=== PATIENT | male | born 1990 | race Caucasian/White ===

== ENCOUNTER 2021-10-14 02:17 | Inpatient (IN) | payer OTHER, SELFPAY ==
--- NOTE | 2021-10-14 | ECG_ITS ---
Test Reason : check qtc Blood Pressure : / mmHG Vent. Rate : 086 BPM Atrial Rate : 086 BPM P-R Int : 128 ms QRS Dur : 096 ms QT Int : 374 ms P-R-T Axes : 068 053 051 degrees QTc Int : 447 ms Normal sinus rhythm Normal ECG No previous ECGs available Referred By: Linda Lewis Electronically Signed By:Babar Bravo
[2021-10-14 02:45] VITALS: BP 133/79; PULSE 93; RESP 16; TEMP 36.4; O2SAT 99
[2021-10-14 03:00] VITALS: BMI 22.9
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
[2021-10-14 08:32] LABS: Cholesterol 134 mg/dL; Estimated Average Glucose 94 mg/dL; HDL Cholesterol 44 mg/dL; Hemoglobin A1c % 4.9 %; LDL Cholesterol Calculated 75 mg/dl; Triglycerides 77 mg/dL
[2021-10-14] MEDS: Nicotine 21 MG PATCH.TD24 TRANSDERMA (08:54)
--- NOTE | 2021-10-14 12:00 | PM.IMCN ---
History of Present Illness Data of Consult Service Date: 10/14/21 Primary Care Provider: Unknown Physician HPI Reason for consult: Routine Medical Consult This is a 31 yo M who reports no medical problems. He is admitted to the inpatient psych unit. Medical consult requested as part of protocol for transfer from outside facility. Patient is seen and examined in the exam room on M5. He denies CP, Sob, Cough, abd pain, n/v/d. PMH Denies PSH Denies FH Reports no significant PMH SH Reports smoking 2-3 PPD, denies EtOh; reports Marijuana Review of Systems Review of Systems: negative except hpi [facility] Medical History (Updated 10/14/21 @ 14:18 by Marcelo Flower MD) Hypertension Cognitive capacity: patient did not report to me a history of HTN Social History Household Members: Family Household Members Other:: mother and father Housing: House Do you presently have visiting nurse or other home services: No Unable to assess alcohol history related to: Unknown Patient Tobacco Use Status: Current everyday Tobacco user Tobacco use type: Cigarette Cigarette Packs Per Day: 2 Cigarettes Per Day: 40.0 Years Smoked: 15 Smoked in Last 30 Days: Yes e-Cigarette/Vaping Use: Never Used Patient Interested in Nicotine Replacement: Yes Substance Use Type: Marijuana Currently Displaying Signs/Symptoms of Drug Intoxication Withdrawal: No Advance Directives: No Advance Directives Information Provided: Yes Advance Directives on File: No Do you have thoughts of harming others: None Do you have a plan to hurt others: No Plan Recently lost weight without trying: Unsure Eating poorly because of decreased appetite: No Nutrition Risks: No Nutritional Risk service: No Sexual orientation: Straight/Heterosexual Meds Allergies Allergy/AdvReac Type Severity Reaction Status Date / Time No Known Allergies Allergy Verified 10/14/21 02:59 Active Medications: Current Medications Acetaminophen (Acetaminophen 325 Mg Tablet) 650 mg PO Q6H PRN PRN Reason: Headache/Pain Mild Scale (1-3) Al Hydroxide/Mg Hydroxide (Magnesium Hydrox/Alum Hydrox 30 Ml Oral.Susp) 30 ml PO Q6H PRN PRN Reason: Heartburn/Nausea Diphenhydramine HCl (Diphenhydramine Hcl 25 Mg Tablet) 50 mg PO Q4H PRN PRN Reason: agitation Haloperidol (Haloperidol 5 Mg Tablet) 5 mg PO Q4H PRN PRN Reason: agitation Hydroxyzine HCl (Hydroxyzine Hcl 25 Mg Tablet) 25 mg PO BEDTIME PRN PRN Reason: Anxiety Lorazepam (Lorazepam 1 Mg Tablet) 2 mg PO Q4H PRN PRN Reason: agitation Magnesium Hydroxide (Milk Of Magnesia 30 Ml Oral.Susp) 30 ml PO DAILY PRN PRN Reason: Constipation Nicotine (Nicotine 21 Mg Patch.Td24) 21 mg TRANSDERMA DAILY [facility] Last Admin: 10/14/21 08:54 Dose: 21 mg Documented by: Trazodone HCl (Trazodone Hcl 50 Mg Tablet) 50 mg PO BEDTIME PRN PRN Reason: Insomnia Home Medications Medication Instructions Recorded Confirmed Last Taken Type aripiprazole 5 mg tablet 1 tab PO DAILY 10/14/21 10/14/21 Unknown History divalproex 250 mg tablet,delayed 250 mg PO BEDTIME 10/14/21 10/14/21 10/14/21 00:15 History release 250 mg divalproex 500 mg tablet,delayed 1 tab PO BID 10/14/21 10/14/21 10/14/21 00:15 History release 500 mg lithium carbonate 300 mg tablet 1 tab PO BID 10/14/21 10/14/21 10/14/21 00:15 History 300 mg risperidone 2 mg tablet 4 mg PO BEDTIME 10/14/21 10/14/21 10/14/21 00:15 History 4 mg ziprasidone HCl 20 mg capsule 20 mg PO BEDTIME 10/14/21 10/14/21 10/14/21 00:15 History 20 mg Physical Exam Vital Signs and Narrative: Vital Signs: Last Vital Signs Temp 97.5 F 10/14/21 02:45 Pulse 93 10/14/21 02:45 Resp 16 10/14/21 02:45 BP 133/79 10/14/21 02:45 Pulse Ox 99 10/14/21 02:45 BMI result Body Mass Index 22.9 Const: Other: Constitutional - Awake and Alert, No apparent distress Eyes - PERRLA, EOMI Cardiovascular - S1S2, RRR, No edema Respiratory - Normal lung expansion, Normal respiratory effort, No respiratory distress, CTA bilaterally Gastrointestinal - NT / ND; +BS; No rebound or guarding - No CVA tenderness Extremities - no calf tenderness bilaterally, no swelling Musculoskeletal - Normal inspection, normal ROM Skin - Warm/Dry Neurological - Alert & oriented x3, No focal deficit; CN 2-12 in tact bilaterally Psychological - Appropriate affect Results Labs Labs: Laboratory Results - last 24 hr 10/14/21 10/14/21 07:48 07:48 Estimat Average Glucose 94 Hemoglobin A1c % 4.9 Triglycerides 77 Cholesterol 134 LDL Cholesterol, Calc 75 HDL Cholesterol 44 Assessment and Plan (1) No pertinent past medical history: Status: Acute This is a 31 yo M admitted to . Medical consult requested as part of routine medical H&P. Patient denies any chronic medical problems nor does he seem to appear have any active medical issues. Please reconsult PRN.
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
[2021-10-14 18:00] VITALS: BP 143/96; PULSE 108; TEMP 37; O2SAT 97
[2021-10-14] MEDS: Lithium Carbonate 300 MG CAPSULE PO ×2 (19:14→21:15)
[2021-10-14] MEDS: ARIPiprazole 5 MG TABLET PO (19:24)
[2021-10-14] MEDS: Divalproex Sodium 500 MG TABLET.DR PO ×2 (19:25→21:15)
[2021-10-14] MEDS: Divalproex Sodium 250 MG TABLET.DR PO (21:16)
[2021-10-14] MEDS: risperiDONE 2 MG TABLET 4 MG PO (21:17)
[2021-10-14] MEDS: Ziprasidone 20 MG CAPSULE PO (21:17)
[2021-10-15] MEDS: traZODone HCL 50 MG TABLET PO ×2 (00:15→22:27)
[2021-10-15] MEDS: hydrOXYzine HCL 25 MG TABLET PO ×2 (00:16→13:22)
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
[2021-10-15 06:00] VITALS: BP 142/86; PULSE 112; RESP 16; TEMP 36.2; O2SAT 99
[2021-10-15] MEDS: Nicotine 21 MG PATCH.TD24 TRANSDERMA (08:10)
[2021-10-15] MEDS: Lithium Carbonate 300 MG CAPSULE PO ×2 (08:10→21:12)
[2021-10-15] MEDS: ARIPiprazole 5 MG TABLET PO (08:11)
[2021-10-15] MEDS: Divalproex Sodium 500 MG TABLET.DR PO ×2 (08:11→21:12)
--- NOTE | 2021-10-15 11:07 | P.PNPSI_ITS ---
Subjective Subjective Date of Service: 10/15/21 Reason For Visit: Bipolar Disorder Subjective Notes: 3 Day Interim History: pt in 505 due to roommate issues. pt irritable and anxious. denies he needs psychiatric care. pressured, internally preoccupied Medication Compliance: Yes Side effects from medications: No Attending Groups: No Review of Systems Acute medical concerns: No Medical Review of Systems: unchanged Review of Systems Review of Systems negative except hpi Mental Status Exam Mental Status Exam Narrative: Pt is alert and oriented; pt presenting mildly irritable and anxious today. Feels he does not need to be in the hospital. eye contact appropriate; Speech is normal rate, volume and prosody and not pressured; no psychomotor retardation present; thought process is organized and goal directed; Thought content is on paranoid delusions and on going home; otherwise pertinent to relevant topics; denies any SI/HI. Denies AVH however makes statements that allude to it; Patients insight and judgment are impaired however he does think he needs and does take meds (levels attest). Patient Appearance: Unkempt Patient Orientation: Person and Situation Level of Consciousness: Appropriate Patient Behavior: Appropriate Mood Description: Anxious Affect Description: Withdrawn Patient Cognition Impaired: Yes Ability to Follow Directions: Good Judgement: Fair Diagnostics Vital Signs (24Hr): Vital Signs - 24 hr 10/14/21 18:00 10/15/21 06:00 Temperature 98.6 F 97.1 F Pulse Rate 108 H 112 H Respiratory Rate 16 Blood Pressure 143/96 H 142/86 H Pulse Oximetry 97 99 BMI result Body Mass Index 22.9 Labs Labs: Laboratory Results - last 48 hr 10/14/21 10/14/21 07:48 07:48 Estimat Average Glucose 94 Hemoglobin A1c % 4.9 Triglycerides 77 Cholesterol 134 LDL Cholesterol, Calc 75 HDL Cholesterol 44 Medications Medications Current Medications Acetaminophen (Acetaminophen 325 Mg Tablet) 650 mg PO Q6H PRN PRN Reason: Headache/Pain Mild Scale (1-3) Al Hydroxide/Mg Hydroxide (Magnesium Hydrox/Alum Hydrox 30 Ml Oral.Susp) 30 ml PO Q6H PRN PRN Reason: Heartburn/Nausea Aripiprazole (Aripiprazole 5 Mg Tablet) 5 mg PO DAILY [facility] Last Admin: 10/15/21 08:11 Dose: 5 mg Documented by: Diphenhydramine HCl (Diphenhydramine Hcl 25 Mg Tablet) 50 mg PO Q4H PRN PRN Reason: agitation Divalproex Sodium (Divalproex Sodium 250 Mg Tablet.) 250 mg PO BEDTIME [facility] Last Admin: 10/14/21 21:16 Dose: 250 mg Documented by: Divalproex Sodium (Divalproex Sodium 500 Mg Tablet.) 500 mg PO BID [facility] Last Admin: 10/15/21 08:11 Dose: 500 mg Documented by: Haloperidol (Haloperidol 5 Mg Tablet) 5 mg PO Q4H PRN PRN Reason: agitation Hydroxyzine HCl (Hydroxyzine Hcl 25 Mg Tablet) 25 mg PO BEDTIME PRN PRN Reason: Anxiety Last Admin: 10/15/21 00:16 Dose: 25 mg Documented by: [place] Carbonate ([place] Carbonate 300 Mg Capsule) 300 mg PO BID [facility] Last Admin: 10/15/21 08:10 Dose: 300 mg Documented by: Lorazepam (Lorazepam 1 Mg Tablet) 2 mg PO Q4H PRN PRN Reason: agitation Magnesium Hydroxide (Milk Of Magnesia 30 Ml Oral.Susp) 30 ml PO DAILY PRN PRN Reason: Constipation Nicotine (Nicotine 21 Mg Patch.Td24) 21 mg TRANSDERMA DAILY [facility] Last Admin: 10/15/21 08:10 Dose: 21 mg Documented by: Nicotine Polacrilex (Nicotine Polacrilex Lozenge 4 Mg Lozenge) 4 mg BUCCAL Q2H PRN PRN Reason: Nicotine Cravings Risperidone (Risperidone 2 Mg Tablet) 4 mg PO BEDTIME [facility] Last Admin: 10/14/21 21:17 Dose: 4 mg Documented by: Trazodone HCl (Trazodone Hcl 50 Mg Tablet) 50 mg PO BEDTIME PRN PRN Reason: Insomnia Last Admin: 10/15/21 00:15 Dose: 50 mg Documented by: Ziprasidone (Ziprasidone 20 Mg Capsule) 20 mg PO BEDTIME [facility] Last Admin: 10/14/21 21:17 Dose: 20 mg Documented by: Allergies Allergies Allergy/AdvReac Type Severity Reaction Status Date / Time No Known Allergies Allergy Verified 10/14/21 02:59 Assessment & Plan Assessment & Plan (1) Schizoaffective disorder, bipolar type: Status: Acute Code(s): F25.0 - Schizoaffective disorder, bipolar type Assessment and Plan: IMPRESSION: Patient is a 31-year-old male with history of schizoaffective disorder who presents from [facility] respite for paranoid thinking and reportedly verbal aggression towards staff. Patient reports lithium and Risperdal are helpful Patient expresses some paranoid delusional thinkin. he denies any SI or HI, He is s lightly irritable and anxious today, without manic symptoms, He is taking his medications; -will continue patient's home medications for now. Levels were recently drawn at [facility] the day before this admission (see below). It is un clear why he is on 3 antipsychotics, two of which are at starting doses; will reach out to outpatient provider for collateral to see if current medication regimen could perhaps be modified and at least one antipsychotic eliminated; also patient's Depakote and lithium levels are either low-normal or subtherapeutic with room for increased doses PLAN: Patient on 3 day notice Q 15 minutes checks Will continue home medications for now however it is unclear why patient is on 3 antipsychotics, two of which are at starting doses; will reach out to outpatient provider for collateral to see if current medication regimen could perhaps be modified and at least one antipsychotic eliminated; also patient's Depakote and lithium levels are either low-normal or subtherapeutic with room for increased dose (patient was recently at a respite and says he takes his meds daily) Obtain collateral information to see how close patient is to his baseline; patient lives with his mother and father and will look to them to help determine his readiness to return home. Abilify 5 mg daily Risperdal 4 mg at bedtime Ziprasidone 20 mg at bedtime Depakote ER 250 mg in the morning Depakote ER 750 mg q.h.s. [place] 300 mg b.i.d. Lab values from [facility] 10/13/21: [place] 0.32 Valproic acid 62.3 Liver enzymes: Within normal limits BUN/CR: 6/0.70 (WNL) Electrolytes: Within normal limits CBC: Within normal limits I spent minutes with the patient and/or on the patient floor today, greater than?50% of which was spent counseling/coordinating care. Patient educated on: medication risk/benefits Informed Consent: further education needed Reason for contiued inpatient stay Substantial Risk for: inability to function and rapid decompensation
[2021-10-15 18:30] VITALS: BP 149/86; PULSE 120; RESP 20; TEMP 36.6; O2SAT 98
[2021-10-15] MEDS: Divalproex Sodium 250 MG TABLET.DR PO (21:12)
[2021-10-15] MEDS: Ziprasidone 20 MG CAPSULE PO (21:12)
[2021-10-15] MEDS: risperiDONE 2 MG TABLET 4 MG PO (21:12)
[2021-10-16 01:16] VITALS: BP 151/106; PULSE 116; RESP 16; TEMP 36.6; O2SAT 97
[2021-10-16] MEDS: HaloperidoL 5 MG TABLET PO (01:18)
[2021-10-16] MEDS: LORazepam 1 MG TABLET 2 MG PO (01:18)
[2021-10-16] MEDS: diphenhydrAMINE HCL 25 MG TABLET 50 MG PO (01:19)
--- NOTE | 2021-10-16 04:21 | PC.NURSE ---
At approx. 1:15am Patient comes out to Nursing Station to report heightened anxiety. Patient reports several fears related to being on the unit and states I'm going to need to defend the people I care about and I care about you. Patient's vital signs are assessed and BP is found to be 151/106 with HR 116. Patient reports he is fearful of sleeping in his room tonight and feels he will be stuck here for a very long time. Patient is reassured and Ativan, Haldol, Benedryl are administered with positive effect. Patient continues to rest comfortably in bed.
[2021-10-16 06:42] VITALS: BP 124/74; PULSE 91; RESP 16; TEMP 36.6; O2SAT 97
[2021-10-16] MEDS: ARIPiprazole 5 MG TABLET PO (08:14)
[2021-10-16] MEDS: Lithium Carbonate 300 MG CAPSULE PO ×2 (08:14→21:34)
[2021-10-16] MEDS: Nicotine 21 MG PATCH.TD24 TRANSDERMA (08:14)
[2021-10-16] MEDS: Divalproex Sodium 500 MG TABLET.DR PO ×2 (08:14→21:34)
--- NOTE | 2021-10-16 10:53 | HO.PSYCHPN ---
Subjective Subjective Date of Service: 10/16/21 Reason For Visit: Bipolar Disorder Interim History: no significant change, continues to be paranoid. He is med compliant and cooperative Medication Compliance: Yes Side effects from medications: No Attending Groups: No Review of Systems Acute medical concerns: No Medical Review of Systems: unchanged Review of Systems Review of Systems negative except hpi Mental Status Exam Mental Status Exam Narrative: Pt is alert and oriented; pt anxious today. Feels he does not need to be in the hospital. eye contact appropriate; Speech is normal rate, volume and prosody and not pressured; no psychomotor retardation present; thought process is organized and goal directed; Thought content is on paranoid delusions and on going home; denies any SI/HI. Denies AVH Patients insight and judgment are impaired however he does think he needs treatment and he does take meds Patient Appearance: Unkempt Patient Orientation: Person and Situation Level of Consciousness: Appropriate Patient Behavior: Appropriate Mood Description: Anxious Affect Description: Withdrawn Patient Cognition Impaired: Yes Ability to Follow Directions: Good Diagnostics Vital Signs (24Hr): Vital Signs - 24 hr 10/15/21 18:30 10/16/21 01:16 10/16/21 06:42 Temperature 97.8 F 97.8 F 97.8 F Pulse Rate 120 H 116 H 91 Respiratory Rate 20 16 16 Blood Pressure 149/86 H 151/106 H 124/74 Pulse Oximetry 98 97 97 BMI result Body Mass Index 22.9 Medications Medications Current Medications Acetaminophen (Acetaminophen 325 Mg Tablet) 650 mg PO Q6H PRN PRN Reason: Headache/Pain Mild Scale (1-3) Al Hydroxide/Mg Hydroxide (Magnesium Hydrox/Alum Hydrox 30 Ml Oral.Susp) 30 ml PO Q6H PRN PRN Reason: Heartburn/Nausea Aripiprazole (Aripiprazole 5 Mg Tablet) 5 mg PO DAILY [facility] Last Admin: 10/16/21 08:14 Dose: 5 mg Documented by: Diphenhydramine HCl (Diphenhydramine Hcl 25 Mg Tablet) 50 mg PO Q4H PRN PRN Reason: agitation Last Admin: 10/16/21 01:19 Dose: 50 mg Documented by: Divalproex Sodium (Divalproex Sodium 250 Mg Tablet.) 250 mg PO BEDTIME [facility] Last Admin: 10/15/21 21:12 Dose: 250 mg Documented by: Divalproex Sodium (Divalproex Sodium 500 Mg Tablet.) 500 mg PO BID [facility] Last Admin: 10/16/21 08:14 Dose: 500 mg Documented by: Haloperidol (Haloperidol 5 Mg Tablet) 5 mg PO Q4H PRN PRN Reason: agitation Last Admin: 10/16/21 01:18 Dose: 5 mg Documented by: Hydroxyzine HCl (Hydroxyzine Hcl 25 Mg Tablet) 25 mg PO BEDTIME PRN PRN Reason: Anxiety Last Admin: 10/15/21 13:22 Dose: 25 mg Documented by: [place] Carbonate ([place] Carbonate 300 Mg Capsule) 300 mg PO BID [facility] Last Admin: 10/16/21 08:14 Dose: 300 mg Documented by: Lorazepam (Lorazepam 1 Mg Tablet) 2 mg PO Q4H PRN PRN Reason: agitation Last Admin: 10/16/21 01:18 Dose: 2 mg Documented by: Magnesium Hydroxide (Milk Of Magnesia 30 Ml Oral.Susp) 30 ml PO DAILY PRN PRN Reason: Constipation Nicotine (Nicotine 21 Mg Patch.Td24) 21 mg TRANSDERMA DAILY [facility] Last Admin: 10/16/21 08:14 Dose: 21 mg Documented by: Nicotine Polacrilex (Nicotine Polacrilex Lozenge 4 Mg Lozenge) 4 mg BUCCAL Q2H PRN PRN Reason: Nicotine Cravings Risperidone (Risperidone 2 Mg Tablet) 4 mg PO BEDTIME [facility] Last Admin: 10/15/21 21:12 Dose: 4 mg Documented by: Trazodone HCl (Trazodone Hcl 50 Mg Tablet) 50 mg PO BEDTIME PRN PRN Reason: Insomnia Last Admin: 10/15/21 22:27 Dose: 50 mg Documented by: Ziprasidone (Ziprasidone 20 Mg Capsule) 20 mg PO BEDTIME [facility] Last Admin: 10/15/21 21:12 Dose: 20 mg Documented by: Allergies Allergies Allergy/AdvReac Type Severity Reaction Status Date / Time No Known Allergies Allergy Verified 10/14/21 02:59 Assessment & Plan Assessment & Plan (1) Schizoaffective disorder, bipolar type: Status: Acute Code(s): F25.0 - Schizoaffective disorder, bipolar type Assessment and Plan: IMPRESSION: Patient is a 31-year-old male with history of schizoaffective disorder who presents from [facility] respite for paranoid thinking and reportedly verbal aggression towards staff. Patient reports lithium and Risperdal are helpful Patient expresses some paranoid delusional thinkin. he denies any SI or HI, He is s lightly irritable and anxious today, without manic symptoms, He is taking his medications; -will continue patient's home medications for now. Levels were recently drawn at [facility] the day before this admission (see below). It is unclear why he is on 3 antipsychotics, two of which are at starting doses; will reach out to outpatient provider for collateral to see if current medication regimen could perhaps be modified and at least one antipsychotic eliminated; also patient's Depakote and lithium levels are either low-normal or subtherapeutic with room for increased doses 10/16/21 continue with current plan: Patient on 3 day notice Q 15 minutes checks Will continue home medications for now however it is unclear why patient is on 3 antipsychotics, two of which are at starting doses; will reach out to outpatient provider for collateral to see if current medication regimen could perhaps be modified and at least one antipsychotic eliminated; also patient's Depakote and lithium levels are either low-normal or subtherapeutic with room for increased dose (patient was recently at a respite and says he takes his meds daily) Obtain collateral information to see how close patient is to his baseline; patient lives with his mother and father and will look to them to help determine his readiness to return home. Abilify 5 mg daily Risperdal 4 mg at bedtime Ziprasidone 20 mg at bedtime Depakote ER 250 mg in the morning Depakote ER 750 mg q.h.s. [place] 300 mg b.i.d. Lab values from [facility] 10/13/21: [place] 0.32 Valproic acid 62.3 Liver enzymes: Within normal limits BUN/CR: 6/0.70 (WNL) Electrolytes: Within normal limits CBC: Within normal limits I spent minutes with the patient and/or on the patient floor today, greater than?50% of which was spent counseling/coordinating care. Reason for contiued inpatient stay Substantial Risk for: harm to self, inability to function and rapid decompensation
[2021-10-16 21:30] VITALS: BP 138/71; PULSE 97; TEMP 36.9
[2021-10-16] MEDS: Divalproex Sodium 250 MG TABLET.DR PO (21:34)
[2021-10-16] MEDS: risperiDONE 2 MG TABLET 4 MG PO (21:34)
[2021-10-16] MEDS: Ziprasidone 20 MG CAPSULE PO (21:34)
[2021-10-16] MEDS: traZODone HCL 50 MG TABLET PO (22:43)
[2021-10-17] MEDS: diphenhydrAMINE HCL 25 MG TABLET 50 MG PO ×2 (01:32→20:16)
[2021-10-17] MEDS: LORazepam 1 MG TABLET 2 MG PO ×2 (01:32→20:14)
[2021-10-17] MEDS: HaloperidoL 5 MG TABLET PO ×2 (01:35→20:14)
[2021-10-17 03:01] LABS: COVID-19 Test Negative (Negative)
[2021-10-17 06:00] VITALS: BP 115/77; PULSE 106; RESP 16; TEMP 36.5; O2SAT 99
[2021-10-17] MEDS: Lithium Carbonate 300 MG CAPSULE PO ×2 (08:23→20:14)
[2021-10-17] MEDS: ARIPiprazole 5 MG TABLET PO (08:23)
[2021-10-17] MEDS: Divalproex Sodium 500 MG TABLET.DR PO ×2 (08:23→20:13)
[2021-10-17] MEDS: Nicotine 21 MG PATCH.TD24 TRANSDERMA (08:23)
--- NOTE | 2021-10-17 10:44 | P.PNPSI_ITS ---
Subjective Subjective Date of Service: 10/17/21 Reason For Visit: Bipolar Disorder Interim History: pt mood anxious; wants to be discharged. staff report he was up at 2 am Medication Compliance: Yes Side effects from medications: No Attending Groups: No Review of Systems Acute medical concerns: No Medical Review of Systems: unchanged Review of Systems Review of Systems no changes Mental Status Exam Mental Status Exam Narrative: Pt is alert and oriented; pt anxious today. Feels he does not need to be in the hospital. eye contact appropriate; Speech is normal rate, volume and prosody and not pressured; no psychomotor retardation present; thought process is organized and goal directed; Thought content is on paranoid delusions and on going home; denies any SI/HI. Denies AVH Patients insight and judgment are impaired however he does think he needs treatment and he does take meds Patient Appearance: Unkempt Patient Orientation: Person and Situation Level of Consciousness: Appropriate Patient Behavior: Appropriate Mood Description: Anxious Affect Description: Withdrawn Patient Cognition Impaired: Yes Ability to Follow Directions: Good Judgement: Poor Diagnostics Vital Signs (24Hr): Vital Signs - 24 hr 10/16/21 21:30 10/17/21 06:00 Temperature 98.5 F 97.7 F Pulse Rate 97 106 H Respiratory Rate 16 Blood Pressure 138/71 115/77 Pulse Oximetry 99 BMI result Body Mass Index 22.9 Labs Labs: Laboratory Results - last 48 hr 10/17/21 02:35 COVID-19 ([facility]) Negative COVID-19 Clin Com See Note Medications Medications Current Medications Acetaminophen (Acetaminophen 325 Mg Tablet) 650 mg PO Q6H PRN PRN Reason: Headache/Pain Mild Scale (1-3) Al Hydroxide/Mg Hydroxide (Magnesium Hydrox/Alum Hydrox 30 Ml Oral.Susp) 30 ml PO Q6H PRN PRN Reason: Heartburn/Nausea Aripiprazole (Aripiprazole 5 Mg Tablet) 5 mg PO DAILY [facility] Last Admin: 10/17/21 08:23 Dose: 5 mg Documented by: Diphenhydramine HCl (Diphenhydramine Hcl 25 Mg Tablet) 50 mg PO Q4H PRN PRN Reason: agitation Last Admin: 10/17/21 01:32 Dose: 50 mg Documented by: Divalproex Sodium (Divalproex Sodium 250 Mg Tablet.) 250 mg PO BEDTIME [facility] Last Admin: 01/01/22 21:34 Dose: 250 mg Documented by: Divalproex Sodium (Divalproex Sodium 500 Mg Tablet.Dr) 500 mg PO BID [facility] Last Admin: 10/17/21 08:23 Dose: 500 mg Documented by: Haloperidol (Haloperidol 5 Mg Tablet) 5 mg PO Q4H PRN PRN Reason: agitation Last Admin: 10/17/21 01:35 Dose: 5 mg Documented by: Hydroxyzine HCl (Hydroxyzine Hcl 25 Mg Tablet) 25 mg PO BEDTIME PRN PRN Reason: Anxiety Last Admin: 10/15/21 13:22 Dose: 25 mg Documented by: [place] Carbonate ([place] Carbonate 300 Mg Capsule) 300 mg PO BID [facility] Last Admin: 10/17/21 08:23 Dose: 300 mg Documented by: Lorazepam (Lorazepam 1 Mg Tablet) 2 mg PO Q4H PRN PRN Reason: agitation Last Admin: 10/17/21 01:32 Dose: 2 mg Documented by: Magnesium Hydroxide (Milk Of Magnesia 30 Ml Oral.Susp) 30 ml PO DAILY PRN PRN Reason: Constipation Nicotine (Nicotine 21 Mg Patch.Td24) 21 mg TRANSDERMA DAILY [facility] Last Admin: 10/17/21 08:23 Dose: 21 mg Documented by: Nicotine Polacrilex (Nicotine Polacrilex Lozenge 4 Mg Lozenge) 4 mg BUCCAL Q2H PRN PRN Reason: Nicotine Cravings Risperidone (Risperidone 2 Mg Tablet) 4 mg PO BEDTIME [facility] Last Admin: 10/16/21 21:34 Dose: 4 mg Documented by: Trazodone HCl (Trazodone Hcl 50 Mg Tablet) 50 mg PO BEDTIME PRN PRN Reason: Insomnia Last Admin: 10/16/21 22:43 Dose: 50 mg Documented by: Ziprasidone (Ziprasidone 20 Mg Capsule) 20 mg PO BEDTIME [facility] Last Admin: 10/16/21 21:34 Dose: 20 mg Documented by: Allergies Allergies Allergy/AdvReac Type Severity Reaction Status Date / Time No Known Allergies Allergy Verified 10/14/21 02:59 Assessment & Plan Assessment & Plan (1) Schizoaffective disorder, bipolar type: Status: Acute Code(s): F25.0 - Schizoaffective disorder, bipolar type Assessment and Plan: IMPRESSION: Patient is a 31-year-old male with history of schizoaffective disorder who presents from [facility] resp[facility] for paranoid thinking and reportedly verbal aggression towards staff. Patient reports lithium and Risperdal are helpful Patient expresses some paranoid delusional thinkin. he denies any SI or HI, He is s lightly irritable and anxious today, without manic symptoms, He is taking his medications; -will continue patient's home medications for now. Levels were recently drawn at [facility] the day before this admission (see below). It is unclear why he is on 3 antipsychotics, two of which are at starting doses; will reach out to outpatient provider for collateral to see if current medication regimen could perhaps be modified and at least one antipsychotic eliminated; also patient's Depakote and lithium levels are either low-normal or subtherapeutic with room for increased doses 10/16/21 continue with current plan: 10/17/21 continue with current treatment plan Patient on 3 day notice Q 15 minutes checks Will continue home medications for now however it is unclear why patient is on 3 antipsychotics, two of which are at starting doses; will reach out to outpatient provider for collateral to see if current medication regimen could perhaps be modified and at least one antipsychotic eliminated; also patient's Depakote and lithium levels are either low-normal or subtherapeutic with room for increased dose (patient was recently at a respite and says he takes his meds daily) Obtain collateral information to see how close patient is to his baseline; patient lives with his mother and father and will look to them to help determine his readiness to return home. Abilify 5 mg daily Risperdal 4 mg at bedtime Ziprasidone 20 mg at bedtime Depakote ER 250 mg in the morning Depakote ER [address] [place] 300 mg b.i.d. Lab values from [facility] 10/13/21: [place] 0.32 Valproic acid 62.3 Liver enzymes: Within normal limits BUN/CR: 6/0.70 (WNL) Electrolytes: Within normal limits CBC: Within normal limits I spent minutes with the patient and/or on the patient floor today, greater than?50% of which was spent counseling/coordinating care. Reason for contiued inpatient stay Substantial Risk for: harm to self, inability to function and med/psych decompensation
[2021-10-17] MEDS: hydrOXYzine HCL 50 MG TABLET PO (17:45)
[2021-10-17 18:00] VITALS: BP 137/76; PULSE 107; TEMP 36.7; O2SAT 98
[2021-10-17] MEDS: Ziprasidone 20 MG CAPSULE PO (20:14)
[2021-10-17] MEDS: risperiDONE 2 MG TABLET 4 MG PO (20:14)
[2021-10-17] MEDS: Divalproex Sodium 250 MG TABLET.DR PO (20:15)
[2021-10-18 06:00] VITALS: BP 124/64; PULSE 98; TEMP 36.1; O2SAT 94
[2021-10-18] MEDS: Nicotine 21 MG PATCH.TD24 TRANSDERMA (08:21)
[2021-10-18] MEDS: Lithium Carbonate 300 MG CAPSULE PO ×2 (08:22→20:13)
[2021-10-18] MEDS: ARIPiprazole 5 MG TABLET PO (08:22)
[2021-10-18] MEDS: Divalproex Sodium 500 MG TABLET.DR PO ×2 (08:22→20:13)
--- NOTE | 2021-10-18 10:12 | HO.PSYCHPN ---
Subjective Subjective Date of Service: 10/18/21 Reason For Visit: Bipolar Disorder Interim History: Patient reports that he is doing well. He says that he is feeling much better than he did on admission. He denies any SI or HI. He denies any AVH. feels the medications have kicked in and would like to discharge tomorrow. Patient is set as that he no longer thinks he has ED. He says that [facility] staff was whispering about making some jokes about it but he does not have it. Patient says he remembers that there was a brian on his neck and he still is not sure whether another person staying at the [facility] put a brian there, but he says it has resolved andhe is not concerned about it. Patient also says that he has no concerns about his mom. He says that his mom is not mean but that it is mostly just him giving his parents trouble. Patient signed a 3 day notice and feels he is ready to go home tomorrow. He looks for to discharge and to seeing his mom tomorrow whom he plans to take off for lunch. Patient said at 1st he did not want to have to stay in the unit, but he is glad he did and expresses much appreciation of the staff on the unit. [employer] Supervisor discussed medications with patient who says he would like to continue them for now and will discuss whether not he can consolidate his medications and maybe get off 1 of the antipsychotics. However he denies any medication side effects. Will get Depakote level tomorrow with associated labs. Patient is returning to live at his parent's house where he resides and feels safe. Mental Status Exam Mental Status Exam Narrative: Pt is alert and oriented; patient is calm, cooperative and pleasant. He is appropriately dressed groomed in casual attire with good hygiene, though poor dentition; He says his mood is great and his affect is congruent; patient's eye contact is appropriate; eye contact appropriate; Speech is normal rate, volume and prosody and not pressured; no psychomotor retardation present; thought process is organized, logical and goal directed; Thought content is on doing better and discharging home; some residual, minimal delusional thoughts but they are not bothersome; denies AVH; denies SI or HI. Patients insight and judgment are intact and adequate. Diagnostics Vital Signs (24Hr): Vital Signs - 24 hr 01/02/22 18:00 10/18/21 06:00 Temperature 98.0 F 96.9 F Pulse Rate 107 H 98 Blood Pressure 137/76 124/64 Pulse Oximetry 98 94 BMI result Body Mass Index 22.9 Labs Labs: Laboratory Results - last 48 hr 10/17/21 02:35 COVID-19 ([facility]) Negative COVID-19 Clin Com See Note Medications Medications Current Medications Acetaminophen (Acetaminophen 325 Mg Tablet) 650 mg PO Q6H PRN PRN Reason: Headache/Pain Mild Scale (1-3) Al Hydroxide/Mg Hydroxide (Magnesium Hydrox/Alum Hydrox 30 Ml Oral.Susp) 30 ml PO Q6H PRN PRN Reason: Heartburn/Nausea Aripiprazole (Aripiprazole 5 Mg Tablet) 5 mg PO DAILY [facility] Last Admin: 10/18/21 08:22 Dose: 5 mg Documented by: Diphenhydramine HCl (Diphenhydramine Hcl 25 Mg Tablet) 50 mg PO Q4H PRN PRN Reason: agitation Last Admin: 10/17/21 20:16 Dose: 50 mg Documented by: Divalproex Sodium (Divalproex Sodium 250 Mg Tablet.) 250 mg PO BEDTIME [facility] Last Admin: 10/17/21 20:15 Dose: 250 mg Documented by: Divalproex Sodium (Divalproex Sodium 500 Mg Tablet.) 500 mg PO BID [facility] Last Admin: 10/18/21 08:22 Dose: 500 mg Documented by: Haloperidol (Haloperidol 5 Mg Tablet) 5 mg PO Q4H PRN PRN Reason: agitation Last Admin: 10/17/21 20:14 Dose: 5 mg Documented by: Hydroxyzine HCl (Hydroxyzine Hcl 25 Mg Tablet) 25 mg PO BEDTIME PRN PRN Reason: Anxiety Last Admin: 10/15/21 13:22 Dose: 25 mg Documented by: [place] Carbonate ([place] Carbonate 300 Mg Capsule) 300 mg PO BID [facility] Last Admin: 10/18/21 08:22 Dose: 300 mg Documented by: Lorazepam (Lorazepam 1 Mg Tablet) 2 mg PO Q4H PRN PRN Reason: agitation Last Admin: 10/17/21 20:14 Dose: 2 mg Documented by: Magnesium Hydroxide (Milk Of Magnesia 30 Ml Oral.Susp) 30 ml PO DAILY PRN PRN Reason: Constipation Nicotine (Nicotine 21 Mg Patch.Td24) 21 mg TRANSDERMA DAILY [facility] Last Admin: 10/18/21 08:21 Dose: 21 mg Documented by: Nicotine Polacrilex (Nicotine Polacrilex Lozenge 4 Mg Lozenge) 4 mg BUCCAL Q2H PRN PRN Reason: Nicotine Cravings Risperidone (Risperidone 2 Mg Tablet) 4 mg PO BEDTIME [facility] Last Admin: 10/17/21 20:14 Dose: 4 mg Documented by: Trazodone HCl (Trazodone Hcl 50 Mg Tablet) 50 mg PO BEDTIME PRN PRN Reason: Insomnia Last Admin: 10/16/21 22:43 Dose: 50 mg Documented by: Ziprasidone (Ziprasidone 20 Mg Capsule) 20 mg PO BEDTIME [facility] Last Admin: 10/17/21 20:14 Dose: 20 mg Documented by: Allergies Allergies Allergy/AdvReac Type Severity Reaction Status Date / Time No Known Allergies Allergy Verified 10/14/21 02:59 Assessment & Plan Assessment & Plan (1) Schizoaffective disorder, bipolar type: Status: Acute Code(s): F25.0 - Schizoaffective disorder, bipolar type Assessment and Plan: IMPRESSION: Patient is a 31-year-old male with history of schizoaffective disorder who [facility] and reportedly verbal aggression towards staff. Patient reports lithium and Risperdal are helpful Patient expresses some paranoid delusional thinkin. he denies any SI or HI, He is s lightly irritable and anxious today, without manic symptoms, He is taking his medications; -will continue patient's home medications for now. Levels were recently drawn at [facility] the day before this admission (see below). It is unclear why he is on 3 antipsychotics, two of which are at starting doses; will reach out to outpatient provider for collateral to see if current medication regimen could perhaps be modified and at least one antipsychotic eliminated; also patient's Depakote and lithium levels are either low-normal or subtherapeutic with room for increased doses Patient is doing well, in good mood, without SI, HI or AVH; he has some residual, mild paranoid thinking but it is not bothersome. Patient says he is tolerating his medications well and he is looking for to going home where he resides with his supportive parents. [employer] Supervisor discussed polypharmacy and the increased risks of side effects with multiple medications; patient would like to continue on current regimen and will continue taking his medications regularly as he has been but plans to discuss potentially eliminating 1 antipsychotic with his outpatient provider. Patient is not an imminent risk of harm to self or others and his request for discharge honored. CV Patient on 3 day notice Q 15 minutes checks Depakote level 10/19/20 lfts/ammonia level 10/19/20 bun/cr 10/19/20 -it is unclear why patient is on 3 antipsychotics, two of which are at starting doses; will reach out to outpatient provider for collateral to see if current medication regimen could perhaps be modified and at least one antipsychotic eliminated; also patient's Depakote and lithium levels are either low-normal or subtherapeutic with room for increased dose (patient was recently at a respite and says he takes his meds daily) Obtain collateral information to see how close patient is to his baseline; patient lives with his mother and father and will look to them to help determine his readiness to return home. Abilify 5 mg daily Risperdal 4 mg at bedtime Ziprasidone 20 mg at bedtime Depakote ER 250 mg in the morning Depakote ER 750 mg q.h.s. [place] 300 mg b.i.d. Lab values from [facility] 10/13/21: [place] 0.32 Valproic acid 62.3 Liver enzymes: Within normal limits BUN/CR: 6/0.70 (WNL) Electrolytes: Within normal limits CBC: Within normal limits I spent minutes with the patient and/or on the patient floor today, greater than?50% of which was spent counseling/coordinating care. Reason for contiued inpatient stay Substantial Risk for: stable for discharge
--- NOTE | 2021-10-18 14:47 | P.DS_ITS ---
DS: Providers Provider Date of Service: 10/19/21 Date of admission: 10/14/21 02:17 Date of discharge: 10/19/21 Primary care physician: Unknown Physician Attending physician on admission: Melo Alcantara Consults: 10/14/21 03:49 Consult to Hospitalist Routine Consulting Provider: Hospitalist Reason For Exam: direct admit Attending physician on discharge: Melo Alcantara DS: Diagnosis Discharge Diagnosis (1) Schizoaffective disorder, bipolar type: Status: Acute DS: Medications Discharge Medications Home Medications: Previous Rx's Medication Instructions Recorded aripiprazole 5 mg tablet 5 mg PO DAILY 30 Days #30 tab 10/18/21 divalproex 250 mg tablet,delayed 250 mg PO BEDTIME 30 Days #30 tab 10/18/21 release divalproex 500 mg tablet,delayed 500 mg PO BID 30 Days #60 tab 10/18/21 release lithium carbonate 300 mg tablet 300 mg PO BID 30 Days #60 tab 10/18/21 nicotine 21 mg/24 hr daily 21 mg TRANSDERMAL DAILY 28 Days 10/18/21 transdermal patch #28 ea risperidone 2 mg tablet 4 mg PO BEDTIME 30 Days #60 tab 10/18/21 trazodone 50 mg tablet 50 mg PO BEDTIME PRN 30 Days #30 10/18/21 tab ziprasidone HCl 20 mg capsule 20 mg PO BEDTIME 30 Days #30 cap 10/18/21 Mental Status Exam Mental Status Exam Narrative: Pt is alert and oriented; patient is calm, cooperative and pleasant.? He is appropriately dressed groomed in casual attire with good hygiene, though poor dentition; He says his mood is good and his affect is congruent; patient's eye contact is appropriate; eye contact appropriate; Speech is normal rate, volume and prosody and not pressured; no psychomotor retardation present; thought process is organized, logical and goal directed; Thought content is on doing better and discharge; denies AVH; denies SI or HI. Patients insight and judgment are intact and adequate. Data Data Completed and Pending Completed studies during hospitalization [Text1]: 10/14/21 10/14/21 10/17/21 07:48 07:48 02:35 Estimat Average Glucose 94 Hemoglobin A1c % 4.9 Triglycerides 77 Cholesterol 134 LDL Cholesterol, Calc 75 HDL Cholesterol 44 COVID-19 ([facility]HY) Negative COVID-19 Clin Com See Note DS: Summary Hospital Course Hospital Course: Patient is a 31-year-old male with history of schizoaffective disorder who presents from [facility] respite for paranoid thinking and reportedly verbal aggression towards staff. Patient reports lithium and Risperdal are helpful. Patient expresses some paranoid delusional thinking. he denies any SI or HI, He is s lightly irritable and anxious today,? without manic symptoms,? He is? taking his medications; -will continue patient's home medications for now.? Levels were recently drawn at [facility] the day before this admission. Patient signed a CV. On admission he remained without any SI or HI and denied AVH. He continued to have some mild to moderate paranoid delusional thoughts. Patient was continued on his home medication regimen which he said was helping. After a couple days patient felt that he was doing better and it was clear that his irritability had resolved; his affect was brighter, more calm and relaxed. On admission he did not report depression however he felt that over the past few days his mood did improve. He continued to deny any SI or HI or AVH and paranoid thinking was minimal and not bothersome. Throughout his stay on the unit patient demonstrated good behavioral and impulse control and was appropriate with both peers and staff. Patient felt ready for discharge and signed a 3 day notice. He was future oriented and looking forward to returning home where he lives with his supportive parents. Social work discussed case with his mother who felt patient was appropriate for discharge home. Patient was not in imminent risk of harm to self or others and his request for discharge honored. It is unclear why he is prescribed 3 antipsychotics, two of which are at starting doses; also, he is two mood stabilizers, lithium which is at a subtherapeutic level and Depakote which is at low normal. Patient did say he was restarted on Risperdal and perhaps his outpatient provider was planning to taper off 1 of his other antipsychotics. Surgery Technician discussed with patient polypharmacy and the increased risks of side effects with multiple medications and whether patient wanted to consider reducing his medications. Patient would like to continue on current regimen but appreciated discussion and reports he plans to discuss potentially eliminating 1 antipsychotic and maybe a mood stabilizer with his outpatient provider.? Surgery Technician agreed this will be best accomplished as an outpatient given that patient was stable and as pt placed a 3 day notice, leaving little time for med management, it was not worth risk of destabilizing patient. Abilify 5 mg daily Risperdal 4 mg at bedtime Ziprasidone 20 mg at bedtime Depakote ER 250 mg in the morning Depakote ER 750 mg q.h.s. [place] 300 mg b.i.d. Time spent discussing smoking cessation with patient: 3 to 10 minutes Status at Discharge Functional status at discharge: independent ambulation Overall status at discharge: patient is back to baseline Time Spent with Patient Time attestation: Total time spent providing and/or coordinating discharge services: Time spent: Less than 30 minutes Discharge Plan Discharge Patient Disposition: Home, Self-Care Discharge Diagnosis: Schizoaffective disorder, bipolar type Referrals: [facility] (psychiatrist) [Other] - 1 Week (Appointments scheduled for ) [facility] (therapists) [Other] - 1 Week (Appointment scheduled for ) Physician,Unknown J [Primary Care Provider] - 1 Week Discharge Medications: New nicotine 21 mg/24 hr Patch 24 Hour 21 mg transdermal DAILY 28 Days Qty: 28 RF: 0 trazodone 50 mg Tablet 50 mg PO BEDTIME PRN (Reason: Insomnia) 30 Days Qty: 30 RF: 0 Continued divalproex 250 mg tablet,delayed release (DR/EC) 250 mg PO BEDTIME 30 Days Qty: 30 RF: 0 risperidone 2 mg Tablet 4 mg PO BEDTIME 30 Days Qty: 60 RF: 0 ziprasidone HCl 20 mg capsule 20 mg PO BEDTIME 30 Days Qty: 30 RF: 0 Changed divalproex 500 mg tablet,delayed release (DR/EC) 500 mg PO BID 30 Days Qty: 60 RF: 0 lithium carbonate 300 mg tablet 300 mg PO BID 30 Days Qty: 60 RF: 0 aripiprazole 5 mg tablet 5 mg PO DAILY 30 Days Qty: 30 RF: 0 Discharge Orders: Discharge Order (Routine); Ordered 10/19/21 Ordered By: Melo Alcantara Diet: regular diet Activity on Discharge: As tolerated Stand Alone Forms: Patient Portal Discharge page Care Plan Goals: Maintain mood and safe behaviors Take medications as prescribed Practice coping skills Continue with outpatient providers and reach out to them as needed Health Concerns: Mood stability and behaviors Plan of Treatment: Follow up with your psychiatric provider and other outpatient providers regarding above concerns Take medications as prescribed Assessment: Risk assessment at time of discharge:? Patient was interviewed prior to discharge and found to be fully oriented and without any SI or HI. Patient has insight and demonstrates good judgment in terms of wanting to pursue treatment. Patient is not in imminent risk of harm to self or others and has a safety plan that includes presenting to the closest ER or calling 911 if feeling unsafe.? Patient has been observed closely by nursing and unit staff throughout admission; patient has not engaged in any behaviors that suggest dangerousness to self or others and has demonstrated appropriate behaviors and impulse control
[2021-10-18 18:00] VITALS: BP 146/84; PULSE 100; RESP 18; TEMP 36.8; O2SAT 99
[2021-10-18] MEDS: Divalproex Sodium 250 MG TABLET.DR PO (20:13)
[2021-10-18] MEDS: risperiDONE 2 MG TABLET 4 MG PO (20:13)
[2021-10-18] MEDS: Ziprasidone 20 MG CAPSULE PO (20:13)
[2021-10-19 06:00] VITALS: BP 153/89; PULSE 88; RESP 18; TEMP 36.1; O2SAT 98
[2021-10-19] MEDS: Nicotine 21 MG PATCH.TD24 TRANSDERMA (08:17)
[2021-10-19] MEDS: Divalproex Sodium 500 MG TABLET.DR PO (08:18)
[2021-10-19] MEDS: ARIPiprazole 5 MG TABLET PO (08:18)
[2021-10-19] MEDS: Lithium Carbonate 300 MG CAPSULE PO (08:18)
[2021-10-19 08:36] LABS: Ammonia 47 umol/L (13-55)
[2021-10-19 08:43] LABS: Alanine Aminotransferase 15 U/L (0-40); Albumin Level 4.4 g/dL (3.5-5.0); Alkaline Phosphatase 57 U/L (39-117); Aspartate Amino Transferase 11 U/L (5-37); Bilirubin Direct < 0.2 mg/dL (0.0-0.5); Bilirubin Total 0.2 mg/dL (0.0-1.0); Blood Urea Nitrogen 16 mg/dL (9-16); Creatinine Clr Calc Pharmacy 147.1; Estimated Glomerular Filt Rate > 60; Total Protein 6.5 g/dL (6.5-8.0)
[2021-10-19 09:06] LABS: Valproate 66.1 mcg/mL (50.0-100.0)
== END 2021-10-19 11:31 | disposition home or self-care (01) | DRG 750 ==
PROVIDERS: Clinical Nurse Specialist Psychiatric/Mental Health; Internal Medicine; Admitting Provider Psychiatry & Neurology Psychiatry; Visit Provider Psychiatry & Neurology Psychiatry
DX: F25.0 Schizoaffective disorder, bipolar type (principal); F17.210 Nicotine dependence, cigarettes, uncomplicated; Z23 Encounter for immunization; Z71.6 Tobacco abuse counseling; Z79.899 Other long term (current) drug therapy
CPT/HCPCS: 36415; 80061; 80076; 80164; 82140; 82565; 83036; 84520; 87635; 90686; 93005; Q0163